=== PATIENT | female | born 1980 | race Caucasian/White ===

== ENCOUNTER 2019-08-07 07:08 | Day surgery (SDC) | payer BC, MEDICAID ==
[~2019-08-07 07:08] MED LIST: Lactated Ringers 1,000 ML IV SCH; Lidocaine 1%/Sod Bicarbonate in NS 8.4% 1 ML Syringe IDERM PRN; Sodium Chloride 0.9% 10 ML Syringe FLUSH PRN
--- NOTE | 2019-08-07 07:58 | PCM.PREANE ---
Preanesthetic Assessment - Procedure Proposed Procedure: excision with ultrasound needle localization - Anesthesia/Transfusion/Family Hx Anesthesia History: Prior Anesthesia Without Reaction Family History of Anesthesia Reaction: No Transfusion History: No Prior Transfusion(s) - Review of Systems General: No Symptoms Pulmonary: No Symptoms Cardiovascular: No Symptoms Gastrointestinal: No Symptoms Neurological: Numbness ("at times in fingers") Other: Reports: Thyroid Problems (hypothyroid) - Physical Assessment NPO Status Date: 08/06/19 NPO Status Time: 00:00 Height: 1.65 m Weight: 66.2 kg ASA Class: 2 Mental Status: Alert & Oriented x3 Airway Class: Mallampati = 1 Dentition: Reports: Normal Dentition Thyro-Mental Finger Breadths: 3 Mouth Opening Finger Breadths: 3 ROM/Head Extension: Full Lungs: Clear to Auscultation, Normal Respiratory Effort Cardiovascular: Regular Rate, Regular Rhythm - Allergies Allergies/Adverse Reactions: Allergies Allergy/AdvReac Type Severity Reaction Status Date / Time No Known Allergies Allergy Verified 08/06/19 10:48 - Blood Blood Available: No Product(s) Available: None - Anesthesia Plan Pre-Op Medication Ordered: None - Acknowledgements Anesthesia Type Planned: General Anesthesia Pt an Appropriate Candidate for the Planned Anesthesia: Yes Alternatives and Risks of Anesthesia Discussed w Pt/Guardian: Yes Pt/Guardian Understands and Agrees with Anesthesia Plan: Yes PreAnesthesia Questionnaire HEENT History: Reports: Impaired Vision Cardiovascular History: Reports: None Respiratory History: Reports: None Gastrointestinal History: Reports: Chronic Constipation Genitourinary History: Reports: Other (See Below) Other Genitourinary History: breast nodule, breast pain, menorrhagia, 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: Reports: None Musculoskeletal History: Reports: None Neurological History: Reports: Migraines Psychiatric History: Reports: Mood Swings Endocrine/Metabolic History: Reports: Hypothyroidism Hematologic History: Reports: None Immunologic History: Reports: None Oncologic (Cancer) History: Reports: Other (See Below) Other Oncologic History: BIRADS 4 Dermatologic History: Reports: None - Past Surgical History HEENT Surgical History: Reports: Adenoidectomy, Myringotomy w Tube(s), Tonsillectomy Cardiovascular Surgical History: Reports: None Respiratory Surgical History: Reports: None GI Surgical History: Reports: Colonoscopy Female Surgical History: Reports: Breast Biopsy Endocrine Surgical History: Reports: None Neurological Surgical History: Reports: None Musculoskeletal Surgical History: Reports: None Oncologic Surgical History: Reports: None Dermatological Surgical History: Reports: None - SUBSTANCE USE Smoking Status *Q: Never Smoker Tobacco Use Within Last Twelve Months: No Second Hand Smoke Exposure: No Days Per Week of Alcohol Use: 0 Number of Drinks Per Day: 0 Total Drinks Per Week: 0 Recreational Drug Use History: No - HOME MEDS Home Medications: Home Meds Docusate Sodium [Stool Softener] 200 mg PO DAILY 08/06/19 [History] Levothyroxine 25 mcg PO DAILY 08/06/19 [History] - CURRENT (IN HOUSE) MEDS Current Meds: Current Medications Lactated Ringer's (Ringers, Lactated) 1,000 mls @ 125 mls/hr IV ASDIRECTED KRISTIN Lidocaine/Sodium Bicarbonate (Buffered Lidocaine 1% In Ns 8.4%) 0.25 ml IDERM ONETIME PRN PRN Reason: Prior to IV Start Sodium Chloride (Saline Flush) 10 ml FLUSH ASDIRECTED PRN PRN Reason: Keep Vein Open
[2019-08-07] MEDS ORDERED: Bupivacaine 0.5%/EPINEPHrine 1:200,000 50 ML MDV ONE (08:09)
[2019-08-07] MEDS ORDERED: Ondansetron 4 MG/2 ML SDV ONE (08:15)
[2019-08-07] MEDS ORDERED: Propofol 200 MG/20 ML SDV ONE (08:16)
[2019-08-07] MEDS ORDERED: Lidocaine 1% 4 ML ONE (08:16)
[2019-08-07] MEDS ORDERED: fentaNYL 250 MCG/5 ML SDV ONE (08:16)
[2019-08-07] MEDS ORDERED: Midazolam 1 MG/ML 2 ML SDV ONE (08:16)
[2019-08-07] MEDS ORDERED: Scopolamine 1.5 MG Transdermal Patch TRDERM SCH (09:35)
[2019-08-07] MEDS ORDERED: ceFAZolin 1 GM Vial ONE (09:46)
--- NOTE | 2019-08-07 09:48 | MY ---
Mammogram: MLO and CC projections of the right breast were obtained. Study obtained following needle localization of abnormality seen by ultrasound. Tip of localization wire is next to the superior aspect of the solid lesion seen by ultrasound. Stereotactic marking clip is noted. Heterogeneously dense breasts are seen. Impression: 1. Mammogram obtained after placement of localization wire under ultrasound guidance. 2. Please note tip of wire is along the superior aspect of the requested lesion to be excised. Diagnostic code #2 This report was dictated in MDT
[2019-08-07] MEDS ORDERED: Lactated Ringers 1,000 ML ONE (10:05)
--- NOTE | 2019-08-07 10:42 | PCM.PRNOTE ---
- Free Text/Narrative Note: Date: 08/07/2019 Operation: excision of needle-localized right breast mass Surgeon: Jameel Hodge MD Findings: no grossly abnormal breast tissue noted. A generous core of tissue surrounding the guide needle was excised and oriented with silk suture prior to sending for specimen mammography. Detailed Report: The patient was taken to the operating room and placed supine on the table. Anesthetic via laryngeal mask airway was initiated, and timeout was performed. The right breast was prepped and draped in usual sterile fashion. Preoperative administration of Ancef and placement of sequential compression devices was confirmed. A total of 20 cc 0.5% Marcaine with epinephrine was injected intradermally along the border of the superior areola and skin. A curvilinear incision along the same border was made with the scalpel, and a superior skin flap was developed using the monopolar energy. The guidewire was identified deep to the skin, and a hemostat was placed on the wire in order to pull it through the skin flap. We went her retractor was placed, and proper exposure ensured. An [place] clamp was placed on the wire at its insertion point into the breast tissue. With retraction on the clamp, a cylinder of tissue approximately 3 cm in diameter was developed to a point deep to the entire localizing needle. The thickened portion of the needle was never directly visualized. This tissue was then excised, and orienting stitches with silk suture were placed. A short stitch marked the superior aspect of the specimen, and a long stitch marked the lateral aspect. The specimen was then sent for specimen mammography, which appeared to contain the specimen in question as best as can be evaluated with radiograph. Hemostasis of the dissection field was ensured. The wound was closed in layers, with interrupted 3-0 Vicryl deep dermal stitches placed, and a running 4-0 Vicryl subcuticular stitch. The wound was dressed with Dermabond. The patient tolerated the procedure well. Jameel Hodge MD General Surgery
[2019-08-07] MEDS ORDERED: fentaNYL 100 MCG/2 ML SDV IVPUSH PRN (10:47)
--- NOTE | 2019-08-07 10:48 | PCM.POSTAN ---
POST ANESTHESIA ASSESSMENT - MENTAL STATUS Mental Status: Alert, Oriented - VITAL SIGNS Vital Signs: Last Vital Signs Temp 37.3 C 08/07/19 07:35 Pulse 97 08/07/19 07:35 Resp 16 08/07/19 07:35 BP 109/80 08/07/19 07:35 Pulse Ox 97 08/07/19 07:35 - RESPIRATORY Respiratory Status: Respiratory Rate WNL, Airway Patent, O2 Saturation Stable - CARDIOVASCULAR CV Status: Pulse Rate WNL, Blood Pressure Stable - GASTROINTESTINAL GI Status: No Symptoms - PAIN Pain Score: 0 - POST OP HYDRATION Hydration Status: Adequate & Stable - OBSERVATIONS Free Text/Narrative:: no anesthesia complications noted
--- NOTE | 2019-08-07 11:11 | MY ---
Specimen radiograph: Single specimen radiograph was obtained following excisional biopsy. Specimen contains the entire spring-hook wire. Vague density is seen next to the spring-hook wire presumably due to the lesion seen on ultrasound although difficult to confirm since this finding has no calcifications. Impression: 1. Specimen radiograph study as noted above. Diagnostic code #2 This report was dictated in MDT
[2019-08-07] MEDS ORDERED: Haloperidol Lactate 5 MG/ML SDV IVPUSH SCH (11:45)
--- NOTE | 2019-08-07 12:33 | PCM48HPAN ---
Post Anesthesia Note - EVALUATION WITHIN 48HRS OF ANESTHETIC Vital Signs in Normal Range: Yes Patient Participated in Evaluation: Yes Respiratory Function Stable: Yes Airway Patent: Yes Cardiovascular Function Stable: Yes Hydration Status Stable: Yes Pain Control Satisfactory: Yes Nausea and Vomiting Control Satisfactory: Yes Mental Status Recovered: Yes Vital Signs: Last Vital Signs Temp 36.6 C 08/07/19 11:40 Pulse 82 08/07/19 12:00 Resp 16 08/07/19 12:00 BP 117/67 08/07/19 12:00 Pulse Ox 98 08/07/19 12:00 - COMMENTS/OBSERVATIONS Free Text/Narrative:: no anesthesia complications noted
== END 2019-08-07 12:52 | disposition home or self-care (01) ==
LOC: JD.SDS 07:08
PROVIDERS: ATTEND Surgery
DX: N63.10 Unspecified lump in the right breast, unspecified quadrant (principal); R92.8 Other abnormal and inconclusive findings on diagnostic imaging of breast; E03.9 Hypothyroidism, unspecified; Z79.890 Hormone replacement therapy; Z79.899 Other long term (current) drug therapy
CPT/HCPCS: 19125; 36415; 76098; 77065; 80048; 81025; A9270; J0690; J1630; J2001; J2250; J2405; J2704; J3010; J3490; J7120; 01610

== ENCOUNTER 2019-11-20 15:29 | Emergency (ER) | payer BC, SELFPAY ==
--- NOTE | 2019-11-20 16:12 | EDM.PDOC ---
ED HPI GENERAL MEDICAL PROBLEM - General Chief Complaint: Abdominal Pain Stated Complaint: GALLBLADDER COMPLAINT/NAUSEA Time Seen by Provider: 11/20/19 15:50 Source of Information: Reports: Patient History Limitations: Reports: No Limitations - History of Present Illness INITIAL COMMENTS - FREE TEXT/NARRATIVE: Patient is a 39-year-old female who presents to the emergency department with complaints of generalized abdominal pain and nausea for the last week. She was seen at the walk-in clinic at [place] on 13 November. Blood work was done at that time and sent to her primary care provider, KARON Coyle. She states that she was called today and told to come to the ER because the lab results show that she could be having gallbladder dysfunction. Patient describes her a bdominal pain is generalized abdominal pain and cramping. Pain is not better or worse and depending on what she eats. She has been maintaining a low-fat diet, however she states that this has not improved the pain. She is had emesis x1 which was yesterday. She does have a history of constipation and states that she has been having some difficulty going for the last few days. States she has taken bowel preps in the past, however she has not been using them recently. States "maybe I need to start those again ". She denies any fever, chills, or diarrhea. Patient did eat lunch today and has had no vomiting with it. Right Lower Abdomen Pain Score (Numeric/FACES): 3 - Related Data Allergies Allergy/AdvReac Type Severity Reaction Status Date / Time No Known Allergies Allergy Verified 08/07/19 09:05 Home Meds: Home Meds Levothyroxine 25 mcg PO DAILY 08/07/19 [History] Cholecalciferol (Vitamin D3) [Vitamin D3] 0 units PO DAILY 11/20/19 [History] Multivitamin [Multivitamins] 1 cap PO DAILY 11/20/19 [History] Past Medical History HEENT History: Reports: Impaired Vision Cardiovascular History: Reports: None Respiratory History: Reports: None Gastrointestinal History: Reports: Chronic Constipation Genitourinary History: Reports: Other (See Below) Other Genitourinary History: breast nodule, breast pain, menorrhagia, ; breast surgery right side-benign lumps 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: 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: None Musculoskeletal History: Reports: None Neurological History: Reports: Migraines Psychiatric History: Reports: Mood Swings Endocrine/Metabolic History: Reports: Hypothyroidism Hematologic History: Reports: None Immunologic History: Reports: None Oncologic (Cancer) History: Reports: Other (See Below) Other Oncologic History: BIRADS 4 Dermatologic History: Reports: None - Infectious Disease History Infectious Disease History: Reports: Other (See Below) Other Infectious Disease History: yellow jaundice - Past Surgical History HEENT Surgical History: Reports: Adenoidectomy, Myringotomy w Tube(s), Tonsillectomy Cardiovascular Surgical History: Reports: None Respiratory Surgical History: Reports: None GI Surgical History: Reports: Colonoscopy Female Surgical History: Reports: Breast Biopsy Endocrine Surgical History: Reports: None Neurological Surgical History: Reports: None Musculoskeletal Surgical History: Reports: None Oncologic Surgical History: Reports: None Dermatological Surgical History: Reports: None Social & Family History - Tobacco Use Smoking Status *Q: Never Smoker - Caffeine Use Caffeine Use: Reports: Soda Other Caffeine Use: can only drink sprite since having issues - Recreational Drug Use Recreational Drug Use: No ED ROS GENERAL - Review of Systems Review Of Systems: See Below Constitutional: Reports: Fatigue, Decreased Appetite. Denies: Fever, Chills HEENT: Reports: No Symptoms Respiratory: Reports: No Symptoms Cardiovascular: Reports: No Symptoms Endocrine: Reports: No Symptoms GI/Abdominal: Reports: Abdominal Pain, Constipation, Nausea, Vomiting. Denies: Diarrhea : Reports: No Symptoms. Denies: Dysuria Musculoskeletal: Reports: No Symptoms Skin: Reports: No Symptoms Neurological: Reports: No Symptoms Psychiatric: Reports: No Symptoms Hematologic/Lymphatic: Reports: No Symptoms Immunologic: Reports: No Symptoms ED EXAM, GI/ABD - Physical Exam Exam: See Below Exam Limited By: No Limitations General Appearance: Alert, WD/WN, No Apparent Distress Respiratory/Chest: No Respiratory Distress, Lungs Clear, Normal Breath Sounds, No Accessory Muscle Use, Chest Non-Tender Cardiovascular: Normal Peripheral Pulses, Regular Rate, Rhythm, No Edema, No Gallop, No JVD, No Murmur, No Rub GI/Abdominal Exam: Normal Bowel Sounds, Soft, No Organomegaly, No Distention, No Abnormal Bruit, No Mass, Pelvis Stable, Tender (Mild generalized tenderness throughout the abdomen. Negative Cummins sign.). No: Guarding, Rigid, Rebound Neurological: Alert, Oriented, CN II-XII Intact, Normal Cognition, Normal Gait, Normal Reflexes, No Motor/Sensory Deficits Psychiatric: Normal Affect, Normal Mood Skin Exam: Warm, Dry, Intact, Normal Color, No Rash Course - Vital Signs Last Recorded V/S: Last Vital Signs Temp 99.5 F 11/20/19 15:48 Pulse 87 11/20/19 15:48 Resp 20 11/20/19 15:48 BP 106/78 11/20/19 15:48 Pulse Ox 99 11/20/19 15:48 - Orders/Labs/Meds Labs: Laboratory Tests 11/20/19 11/20/19 11/20/19 Range/Units 16:17 16:17 16:52 WBC 6.35 (3.98-10.04) K/mm3 RBC 4.34 (3.98-5.22) M/mm3 Hgb 13.0 (11.2-15.7) gm/dl Hct 39.6 (34.1-44.9) % MCV 91.2 (79.4-94.8) fl MCH 30.0 (25.6-32.2) pg MCHC 32.8 (32.2-35.5) g/dl RDW Std Deviation 41.2 (36.4-46.3) fL Plt Count 273 (182-369) K/mm3 MPV 9.6 (9.4-12.3) fl Neut % (Auto) 62.5 (34.0-71.1) % Lymph % (Auto) 25.2 (19.3-51.7) % [place] % (Auto) 10.4 (4.7-12.5) % Eos % (Auto) 1.4 (0.7-5.8) Baso % (Auto) 0.3 (0.1-1.2) % Neut # (Auto) 3.97 (1.56-6.13) K/mm3 Lymph # (Auto) 1.60 (1.18-3.74) K/mm3 [place] # (Auto) 0.66 H (0.24-0.36) K/mm3 Eos # (Auto) 0.09 (0.04-0.36) K/mm3 Baso # (Auto) 0.02 (0.01-0.08) K/mm3 Sodium 139 (136-145) mEq/L Potassium 3.9 (3.5-5.1) mEq/L Chloride 103 (98-107) mEq/L Carbon Dioxide 29 (21-32) mEq/L Anion Gap 10.9 (5-15) BUN 15 (7-18) mg/dL Creatinine 0.9 (0.55-1.02) mg/dL Est Cr Clr Drug Dosing 71.75 mL/min Estimated GFR (MDRD) > 60 (>60) mL/min BUN/Creatinine Ratio 16.7 (14-18) Glucose 89 (74-106) mg/dL Calcium 8.9 (8.5-10.1) mg/dL Total Bilirubin 0.3 (0.2-1.0) mg/dL AST 55 H (15-37) U/L ALT 72 H (14-59) U/L Alkaline Phosphatase 52 (46-116) U/L C-Reactive Protein 0.2 (<1.0) mg/dL Total Protein 6.7 (6.4-8.2) g/dl Albumin 3.9 (3.4-5.0) g/dl Globulin 2.8 gm/dL Albumin/Globulin Ratio 1.4 (1-2) Amylase 103 (25-115) U/L Lipase 106 (73-393) U/L Urine Color Yellow (Yellow) Urine Appearance Clear (Clear) Urine pH 7.0 (5.0-8.0) Ur Specific [place] 1.015 (1.005-1.030) Urine Protein Negative (Negative) Urine Glucose (UA) Negative (Negative) Urine Ketones 1+ H (Negative) Urine Occult Blood Negative (Negative) Urine Nitrite Negative (Negative) Urine Bilirubin Negative (Negative) Urine Urobilinogen 0.2 (0.2-1.0) Ur Leukocyte Esterase 1+ H (Negative) Urine RBC 0-5 (0-5) /hpf Urine WBC 5-10 H (0-5) /hpf Ur Squamous Epith Cells 5-10 H (0-5) /hpf Urine Bacteria Few (FEW) /hpf Urine Mucus Few (FEW) /hpf - Re-Assessments/Exams Free Text/Narrative Re-Assessment/Exam: Exam, patient does have mild generalized tenderness throughout her abdomen, slightly worse in the right lateral and left lower quadrants. She does not have significant tenderness noticed in the right upper quadrant. Based on her exam, did not feel that her pain is coming from her gallbladder. She does have a history of constipation and states that she has not been taking her bowel regimen lately. We will repeat her blood work today to include a CBC, CMP, CRP, lipase, and amylase. Urinalysis has been ordered. We will do a 1 view x-ray of her abdomen. Since she did not eat lunch today, we are unable to do a gallbladder ultrasound at this time as it has not been 6 hours since she last ate. 11/20/19 17:09 Patient's hematology was significant for an AST and ALT that are slightly elevated. Alk phos, lipase, and amylase are all normal. X-ray of the abdomen does show a collection of stool throughout the ascending transverse and that a small amount in the descending colon. Also showed 1+ leukocyte esterase, 5-10 WBCs, and 5-10 squamous epithelial cells. Patient also had urinalysis and culture done at [place] on 13 November. This showed mixed jessie with contamination. She had been taking Macrobid. I will send this urine for culture as well, however my suspicion is that this is also contamination. We will not start antibiotics at this time. I feel it is possible that this is the cause of her pain and nausea. Send her home with a bottle of magnesium citrate. Discussed with her that she should follow-up with your primary care provider and if she continues to have pain after she does the colon cleanse, they can further discuss gallbladder ultrasound. Discharge instructions as documented. Departure - Departure Time of Disposition: 17:10 Disposition: Home, Self-Care 01 Condition: Good Clinical Impression: Abdominal pain - Discharge Information *PRESCRIPTION DRUG MONITORING PROGRAM REVIEWED*: No *COPY OF PRESCRIPTION DRUG MONITORING REPORT IN PATIENT GIULIANA: No Instructions: Abdominal Pain, Adult, [id number] Referrals: Ailyn Stallings NP [Primary Care Provider] - Forms: ED Department Discharge Additional Instructions: Were seen in the emergency department today for a one-week history of generalized abdominal pain and nausea. Your work-up included blood work, urinalysis, and an x-ray of your abdomen. Your work-up was found to be overall normal with the exception of your liver enzymes being slightly elevated. X-ray does show a collection of stool in the right side and upper portion of your colon, well as a moderate amount in the left side of your colon. As we discussed, I do feel the constipation could be the cause of your generalized abdominal pain and nausea. You have been sent home with a bottle of magnesium citrate. Drink this entire bottle when you get home. Please produce a number of bowel movements some of which may be loose. Recommend that you follow-up with your primary care provider. If the bowel cleanse fails to alleviate your symptoms, you may discuss an outpatient gallbladder ultrasound as we were unable to do one today since you had eaten. Return to the ER as needed. Sepsis Event Note (ED) - Evaluation Sepsis Screening Result: No Definite Risk - Focused Exam Vital Signs: Vital Signs Temp Pulse Resp BP Pulse Ox 11/20/19 15:48 99.5 F 87 20 106/78 99
--- NOTE | 2019-11-20 16:35 | CR ---
Abdomen: Supine view of the abdomen was obtained. Comparison: No prior abdominal imaging is available. Findings: Bowel gas pattern appears normal. Minimal scoliosis is noted within the spine. Calcification within the right side of the pelvis is seen most likely due to phlebolith. Opacity is seen within the right mid abdomen most likely representing ingested pill. No acute finding is seen. Impression: 1. Findings as noted above. 2. Nothing acute is seen. Diagnostic code #2 This report was dictated in MDT
[2019-11-20] MEDS ORDERED: Magnesium Citrate Solution 296 ML Bottle PO ONE (17:36)
== END 2019-11-20 17:44 | disposition home or self-care (01) ==
LOC: JD.ED 15:29 → SUPCPDRO 15:29 → JD.ED 17:44
DX: R10.84 Generalized abdominal pain (principal); E03.9 Hypothyroidism, unspecified; Z79.899 Other long term (current) drug therapy
CPT/HCPCS: 36415; 74018; 80053; 81001; 82150; 83690; 85025; 86140; 87086; 99284; A9270; 99282